=== PATIENT | female | born 1980 | race Caucasian/White ===

== ENCOUNTER 2019-12-15 11:45 | Outpatient (CLI) | payer OTHER, SELFPAY ==
--- NOTE | ~2019-12-15 | US_ITS ---
EXAMINATION: US pelvic complete w TV DATE: 12/15/2019 12:25 INDICATION: Pelvic pain. TECHNIQUE: Multiple transabdominal and transvaginal sonographic images of the pelvis were obtained. COMPARISON: None. FINDINGS: TRANSABDOMINAL ULTRASOUND: The uterus measures 8.1 x 5.0 x 4.2 cm. There is no free fluid in the pelvis. TRANSVAGINAL ULTRASOUND: The endometrial complex measures 9 mm in thickness. There is an intrauterine device in expected posit ion. There is a 1.5 cm intramural fibroid. The right ovary measures 2.3 x 3.1 x 2.7 cm. The left ovar y is not visualized. IMPRESSION: 1. Intrauterine device in expected position. 2. Intramural fibroid. Reviewed, dictated and finalized at location A.
== END 2019-12-15 11:46 | disposition home or self-care (01) ==
PROVIDERS: PCP Internal Medicine Geriatric Medicine; Visit Provider Obstetrics & Gynecology
DX: R10.10 Upper abdominal pain, unspecified (principal); D25.9 Leiomyoma of uterus, unspecified; Z30.431 Encounter for routine checking of intrauterine contraceptive device
CPT/HCPCS: 76830; 76856

== ENCOUNTER 2020-02-13 15:46 | Emergency (ER) | payer OTHER, SELFPAY ==
--- NOTE | ~2020-02-13 | XR_ITS ---
XR shoulder RT min 2V 02/13/2020 16:17 INDICATION: Right shoulder pain PROCEDURE: 4 views right shoulder COMPARISON: No prior studies for comparison. FINDINGS: Fracture, dislocation or subluxation is not identified. The soft tissues appear within norm al limits. No foreign bodies are identified. IMPRESSION: 1: NO ACUTE BONE OR JOINT ABNORMALITY IDENTIFIED. Reviewed, dictated and finalized at location A.
[2020-02-13 15:55] VITALS: BP 128/73; PULSE 90; RESP 20; TEMP 37.4; O2SAT 99
[2020-02-13 16:19] VITALS: BP 128/73; PULSE 90; RESP 20; TEMP 37.4; O2SAT 99
--- NOTE | 2020-02-13 16:20 | ED.UPPEXIN ---
HPI - Extremity Injury (Upper) General Chief Complaint: Extremity Injury, Upper Stated Complaint: right shoulder pain Time Seen by Provider: 02/13/20 16:00 Source: patient and RN notes reviewed Mode of arrival: ambulatory Limitations: no limitations History of Present Illness HPI narrative: 39-year-old female who presents to [facility] with complaints of right shoulder pain related to injury today around 1100. Patient states that she was at [employer] and she bent down to check modem of computer and tripped and fell onto right shoulder on garage floor and also hit her left knee but states minimal discomfort to medial aspect of left knee with small bruise noted. Patient states that her right shoulder pain is severe, that she can't move it with pain radiating down into deltoid region. Patient denies any tingling or numbness to her right hand or fingers, strong right brachial and radial pulses. Patient states that she has taken Tylenol an also has applied ice to her right shoulder with no improvement in her pain. MD complaint: injury to: right and shoulder Onset (ago): hour(s) (11:00 today) Other Extremity Injury: Right: shoulder Other injuries: LLE (medial knee) Handedness: right Place: other (friend's motorcycle shop) Severity: severe Severity scale (1-10): 10 Relieving factors: cold therapy and rest Exacerbating factors: movement of extremity Context: fall and direct blow Associated symptoms: other (left medial knee discomfort also) Treatments prior to arrival: cold therapy and other (tylenol) Related Data Home Medications Medication Instructions Recorded Confirmed sertraline [Zoloft] 200 mg PO DAILY 02/13/20 02/13/20 Allergies Allergy/AdvReac Type Severity Reaction Status Date / Time Sulfa (Sulfonamide Allergy Severe HIVES, Verified 12/22/13 15:00 Antibiotics) SWELLING Review of Systems Review of Systems: Narrative: CONSTITUTIONAL: Denies fever, chills, or sweats. EYES: Denies visual changes, redness, or discharge. ENT: Denies rhinorrhea, congestion, sore throat, or otalgia. CARDIOVASCULAR: Denies chest pain, palpitations, or edema. RESPIRATORY: Denies cough or dyspnea. GASTROINTESTINAL: Denies abdominal pain, nausea, vomiting, or diarrhea. GENITOURINARY: Denies dysuria or hematuria. SKIN: Denies rash or itching. MUSCULOSKELETAL: Denies back pain,positive for right shoulder joint pain, mild discomfort to left knee or myalgia. NEUROLOGIC: Denies headache, numbness, or weakness. PSYCHIATRIC:Positive history of anxiety or depression. 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 Osteoarthritis of knees, bilateral Surgical History Surgical History (Updated 02/15/20 @ 09:44 by Feli Gonzalez NP) H/O abdominoplasty Family History Family History (Updated 02/15/20 @ 09:46 by Feli Gonzalez NP) Father Hypertension Grandparent Heart disease Diabetes mellitus Social History Social History (Updated 02/15/20 @ 09:48 by Feli Gonzalez NP) Smoking status: Never smoker Alcohol intake: unknown Substance use: unknown Living arrangements: with family Gender identity (if verbalized by the patient): Female Comments At time of signature, agree with nursing past medical, surgical, social and family history. There is no relevant family history pertinent to the presenting complaint Exam Narrative: Exam Narrative: GENERAL: Well-appearing, well-nourished, and in no acute distress. HEAD: Normocephalic, atraumatic. EYES: PERRLA and EOMI. ENT: Nares clear, no rhinorrhea or epistaxis. Mucous membranes moist. NECK: Supple.no lymphadenopathy CHEST: Clear to auscultation. No respiratory distress.SAO2 99% on room air. HEART: Regular rate and rhythm. No murmur heard. Normal peripheral pulses. ABDO
== END 2020-02-13 17:05 | disposition home or self-care (01) ==
PROVIDERS: Emergency Provider Registered Nurse; PCP Internal Medicine Geriatric Medicine
DX: S40.011A Contusion of right shoulder, initial encounter (principal); W01.0XXA Fall on same level from slipping, tripping and stumbling without subsequent striking against object, initial encounter; S83.92XA Sprain of unspecified site of left knee, initial encounter; M17.0 Bilateral primary osteoarthritis of knee; F41.9 Anxiety disorder, unspecified
CPT/HCPCS: 73030; 99213; G0463

== ENCOUNTER 2020-07-21 19:02 | Emergency (ER) | payer OTHER, SELFPAY ==
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
[2020-07-21 19:18] VITALS: BP 158/84; PULSE 88; RESP 18; TEMP 37.1; O2SAT 98
--- NOTE | 2020-07-21 19:25 | ECG_ITS ---
Measurements Intervals [place] Rate: 82 P: 38 [place]: 135 QRS: 42 QRSD: 94 T: 37 QT: 343 QTc: 402 Interpretive Statements SINUS RHYTHM BASELINE ARTIFACT- II, III, AVF NORMAL ECG Electronically Signed On 07-22-2020 7:11:17 CDT by Ravi Muir D.O.
[2020-07-21 19:30] VITALS: BP 158/84; PULSE 88; RESP 18; TEMP 37.1; O2SAT 98
== END 2020-07-21 19:35 | disposition home or self-care (01) ==
PROVIDERS: Emergency Provider Nurse Practitioner; PCP Internal Medicine Geriatric Medicine
DX: M25.512 Pain in left shoulder (principal); M17.0 Bilateral primary osteoarthritis of knee
CPT/HCPCS: 93005; 99213; G0463

== ENCOUNTER 2020-09-13 09:25 | Emergency (ER) | payer SELFPAY ==
--- NOTE | ~2020-09-13 | XR_ITS ---
EXAMINATION: XR finger 2nd LT min 2V EXAM DATE: 09/13/2020 10:00 INDICATION: Smashed in car door 09/11/20. Pain distal tuft. TECHNIQUE: Left 2nd finger frontal, lateral and oblique projections obtained and reviewed. There i s no prior study for comparison. FINDINGS: There are no acute left 2nd finger fractures or dislocations identified. There is no subcu taneous gas. The soft tissue is unremarkable. IMPRESSION: 1. Left 2nd finger exam without acute osseous findings. Reviewed, dictated and finalized at location B.
--- NOTE | 2020-09-13 09:29 | ED.UPPEXIN ---
HPI - Extremity Injury (Upper) General Chief Complaint: Extremity Injury, Upper Stated Complaint: left pointer finger injury Time Seen by Provider: 09/13/20 09:30 Source: patient and RN notes reviewed History of Present Illness HPI narrative: Patient is a 40-year-old female who presents to the urgent care with complaints of left pointer finger injury. Patient states on the she smashed in a car door and the nail immediately fell off at that time. Patient states that she has been putting Neosporin and using Tylenol and ice for pain and comfort. Patient has been covering the nail with gauze. Patient denies of any fevers or increased redness or swelling to the area. No other acute complaints or injuries. No acute distress noted. Patient aware of the plan of care. Some parts of this dictation were generated by voice recognition software and may contain typographical and/or grammatical inaccuracies. Related Data Allergies Allergy/AdvReac Type Severity Reaction Status Date / Time Sulfa (Sulfonamide Allergy Severe HIVES, Verified 09/13/20 09:59 Antibiotics) SWELLING Review of Systems Review of Systems: Narrative: CONSTITUTIONAL: Denies fever, chills, or sweats. EYES: Denies visual changes, redness, or discharge. ENT: Denies rhinorrhea, congestion, sore throat, or otalgia. CARDIOVASCULAR: Denies chest pain, palpitations, or edema. RESPIRATORY: Denies cough or dyspnea. GASTROINTESTINAL: Denies abdominal pain, nausea, vomiting, or diarrhea. GENITOURINARY: Denies dysuria or hematuria. SKIN: Reports of losing the nail to the left index finger. MUSCULOSKELETAL: Reports of pain to the left index finger NEUROLOGIC: Denies headache, numbness, or weakness. All other systems reviewed are negative, except as documented in HPI. 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 Osteoarthritis of knees, bilateral Surgical History Surgical History (Updated 02/15/20 @ 09:44 by Feli Gonzalez NP) H/O abdominoplasty Family History Family History (Updated 02/15/20 @ 09:46 by Feli Gonzalez NP) Father Hypertension Grandparent Heart disease Diabetes mellitus Social History Social History (Updated 02/15/20 @ 09:48 by Feli Gonzalez NP) Smoking status: Never smoker Alcohol intake: unknown Substance use: unknown Gender identity (if verbalized by the patient): Female Comments At the time of my signature, I reviewed and agree with the nursing past medical, surgical, social, and family history. There is no relevant family history pertinent to the patient complaint. Exam Narrative: Exam Narrative: GENERAL: This is a well-nourished, well-developed patient, in no apparent distress. HEAD: normocephalic, atraumatic. EYES: PERRL. Sclera clear/white. Vision is grossly intact. EARS: External ears normal NOSE: External nose normal with no obvious nasal discharge, nares without redness, no rhinorrhea. THROAT: Mucous membranes moist NECK: Neck supple CARDIOVASCULAR: Regular rate and rhythm without murmurs, gallops, or rubs. RESPIRATORY: Clear to auscultation. Breath sounds equal bilaterally. No wheezes, rales, or rhonchi. SKIN: Partial nail near the cuticle of the left index finger otherwise absent. Warm, intact with no suspicious lesions or rash, good texture and turgor. NEURO: awake, alert, and oriented to person, place and time. There were no obvious focal neurologic abnormalities. EXTREMITIES: Mild ecchymosis and erythema to the tuft/nailbed of the left index finger. Unable to tolerate test of capillary refill to the affected digit. Range of motion to the affected digit within normal limits. Positive strong left radial pulse. Course Vital Signs Vital signs: Vital Signs Temperature 98.5 F 09/13/20 09:32 Pulse Rate 78 09/13/20 09:32 Respiratory Rate 18 09/13/20 09:32 Blood Pressur
[2020-09-13 09:32] VITALS: BP 133/75; PULSE 78; RESP 18; TEMP 36.9; O2SAT 100
== END 2020-09-13 10:20 | disposition home or self-care (01) ==
PROVIDERS: Emergency Provider Nurse Practitioner Family; PCP Internal Medicine Geriatric Medicine
DX: S69.92XA Unspecified injury of left wrist, hand and finger(s), initial encounter (principal); W23.0XXA Caught, crushed, jammed, or pinched between moving objects, initial encounter; M17.0 Bilateral primary osteoarthritis of knee
CPT/HCPCS: 29130; 73140; 99213; G0463

== ENCOUNTER 2021-07-05 11:51 | Outpatient (CLI) | payer OTHER, SELFPAY ==
--- NOTE | ~2021-07-05 | XR_ITS ---
EXAMINATION: XR abdomen/kub 1V EXAM DATE: 07/05/2021 12:18 INDICATION: Misplaced IUD. TECHNIQUE: Frontal projection(s) of the abdomen for interpretation. There is no prior study for [place]. FINDINGS: No radiopaque foreign bodies identified. Nonobstructive bowel gas pattern. Several pelvic calcifications probably phleboliths. The spinal cord signal intensity and intrinsic morphology is nor mal. No organomegaly. There are no osseous abnormalities identified. IMPRESSION: No radiopaque foreign bodies within abdomen or pelvis. Reviewed, dictated and finalized at location G.
== END 2021-07-05 11:52 | disposition home or self-care (01) ==
LOC: ANHOBOP 11:53 → ANHIMG 11:57
PROVIDERS: PCP Internal Medicine Geriatric Medicine; Visit Provider Obstetrics & Gynecology
DX: T83.32XA Displacement of intrauterine contraceptive device, initial encounter (principal)
CPT/HCPCS: 74018

== ENCOUNTER 2021-08-11 08:53 | Outpatient (CLI) | payer OTHER, SELFPAY ==
[2021-08-11 09:27] LABS: Basophils Absolute Auto 0.1 K/mm3 (0.0-0.1); Basophils Percent Auto 0.6 % (0.2-1.2); Eosinophils Absolute Auto 0.4 K/mm3 (0-0.3); Eosinophils Percent Auto 4.2 % (0-4.4); Hematocrit 40.1 % (37.0-47.0); Hemoglobin 13.3 g/dL (12.0-15.0); Immature Granulocyte Absolute 0.03 K/mm3 (0.00-0.031); Immature Granulocyte Percent A 0.3 % (0-0.5); Lymphocytes Absolute Auto 2.24 K/mm3 (0.9-3.2); Lymphocytes Percent Auto 23.6 % (18.3-44.2); Mean Corpuscular HGB Conc 33.2 g/dl (32-36); Mean Corpuscular Hemoglobin 29.8 pg (26-34); Mean Corpuscular Volume 89.9 fl (80-100); Mean Platelet Volume 11.1 fl (7.4-10.4); Monocytes Absolute Auto 0.4 K/mm3 (0.1-0.6); Neutrophils Absolute Auto 6.4 K/mm3 (1.3-6.7); Neutrophils Percent Auto 67.3 % (45.5-73.1); Platelet Count Result 274 k/mm3 (150-375); Red Blood Count 4.46 M/mm3 (4.2-5.4); White Blood Count 9.5 K/mm3 (4.5-10.0)
== END 2021-08-11 08:54 | disposition home or self-care (01) ==
LOC: ANHSURGERY 09:04
PROVIDERS: PCP Internal Medicine Geriatric Medicine; Visit Provider Obstetrics & Gynecology
DX: D21.9 Benign neoplasm of connective and other soft tissue, unspecified (principal); Z01.818 Encounter for other preprocedural examination
CPT/HCPCS: 36415; 85025; 86850; 86900; 86901

== ENCOUNTER 2021-08-16 00:47 | Day surgery (SDC) | payer OTHER, SELFPAY ==
[2021-08-10 14:12] VITALS: BMI 31.9
--- NOTE | 2021-08-10 14:15 | SUR.PREOP ---
Report to the Outpatient Waiting Room, entrance under the green pavilion located off [facility], at time _1000 on date _08/16/21 . OR Time: _1200 . - You and your visitor will be asked a series of questions to screen for COVID 19 for your protection. - Only one visitor is allowed at this time. - The patient visitor is requested to leave or wait in car when not with patient. - A mask is required within the hospital. Patients may have clear liquids (water, carbonated beverages, clear teas, apple juice) until 3 hours prior to surgery with a maximum of 20 ounces. - No food from midnight until time of surgery - Infants may have breast milk until 4 hours before surgery, infant formula 6 hours prior to surgery. - Children will be allowed to drink immediately following surgery. If applicable, please bring a bottle or sippy cup to assist with drinking. Juice, water, soda, and popsicles are readily available. For infants on formula, please bring formula the day of surgery. Pacifiers are allowed. Take the following medications with a SIP of water the morning of surgery: ___n/a Medications to discontinue per physician ___multivitamin Date to take last dose__08/13/21 Please no make-up, nail upper sorbian, hairspray, perfume, deodorant, or body powder the day of surgery. No jewelry (including any body piercings) or valuables the day of surgery, leave them at home. Please take a shower or bath the night before, or the morning of, surgery with an antibacterial soap. Wear comfortable, loose fitting clothing. Children are encouraged to wear pajamas. - Jewelry must be removed prior to entering the operating room. Rings and piercings that are not removed may be cut off. - The hospital will not accept responsibility for valuables. remove contacts day of surgery - Please leave all valuables, including medications, at home the day of surgery. If you are going home after surgery, a licensed straight truck driver must drive you home. - NO public transportation without another adult. - We recommend that an adult stay with you for 24 hours following discharge. - We also recommend that you do not drive, make important decision, drink alcoholic beverages, or take any drugs that were not prescribed by your health care provider for at least 24 hours after your discharge time. For Pediatric surgeries, we recommend two adults accompany the child home (only one inside the building at this time). Follow any additional instructions given to you from your surgeon. If you or anyone in your household have experienced Covid symptoms in the past week, please notify your surgeon or the nurse liaison at the phone number below for possible testing. Telephone instructions given to _brynn francois and asked if any additional questions and then verbalized understanding. Patient advised to call surgeon office or pre surgery nurse liaison [phone] if any additional questions.
--- NOTE | 2021-08-15 10:38 | PM.IMHP ---
H&P: HPI History of Present Illness Date/Time: 08/15/21 10:38 41-year-old female with symptomatic uterine fibroids with heavy bleeding enlarged uterus pelvic pain admitted for robotic hysterectomy and bilateral salpingectomy. Risks and benefits reviewed degree detail. She understands this will make her permanently infertile. 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 Osteoarthritis of knees, bilateral Surgical History Surgical History H/O abdominoplasty Family History Family History Father Hypertension Grandparent Heart disease Diabetes mellitus Social History Social History Smoking status: Never smoker Alcohol intake: unknown Substance use: unknown Gender identity (if verbalized by the patient): Female Spiritual care concerns: No Meds Home Medications and Allergies Home Medications Medication Instructions Recorded Confirmed Type albuterol 90 mcg INHALATION PRN 08/10/21 08/10/21 History multivitamin 1 cap PO DAILY 08/10/21 08/10/21 History Allergies Allergy/AdvReac Type Severity Reaction Status Date / Time Sulfa (Sulfonamide Allergy Severe HIVES, Verified 08/10/21 13:58 Antibiotics) SWELLING Exam Const: General: no acute distress Eyes: General: appearance normal, both eyes and all related structures Neck: Neck: supple and no JVD Thyroid: thyroid normal Resp: Effort & Inspection: normal respiratory effort Auscultation: clear to auscultation bilaterally Cardio: Rate: regular rate Rhythm: regular rhythm GI: Inspection: non-distended GI Palp: Yes Soft to palpation, No Tenderness to palpation present (GI) and No Guarding due to palpation present (GI) Auscultation: normal bowel sounds : External Female Exam: normal external appearance Speculum Exam - Vagina: normal appearance of the vagina Speculum Exam - Cervix: Cervical os closed Bimanual exam- vagina & uterus: enlarged and nodular Skin: General skin exam: no rashes or lesions noted Extrem: General: normal to inspection and no edema Psych: Mental Status: mental status grossly normal Affect: normal affect Assessment and Plan Additional Plan impression the heavy bleeding enlarged uterus and uterine fibroids with pain Plan: Robotic total vaginal hysterectomy and bilateral salpingectomy
[2021-08-16] VITALS (9 sets, daily range): BP systolic 122–158; BP diastolic 68–96; PULSE 56–84; RESP 12–16; TEMP 36.2–36.9; O2SAT 93–100
--- NOTE | 2021-08-16 06:39 | WPDHPUPDATE1 ---
History and Physical Update Update Date/Time: 08/16/21 06:39 History and Physical has been reviewed, including an updated exam of the patient. There are NO changes in the patient's condition. Risks, benefits, and alternatives have been discussed and questions answered. Patient agrees to proceed with procedure.
[2021-08-16] MEDS: LACTATED RINGERS 1,000 ML 30 ML IV CONT (10:24)
[2021-08-16] MEDS: ACETAMINOPHEN 500 MG TABLET 1000 MG PO (10:24)
[2021-08-16] MEDS: KETOROLAC 15 MG/ML VIAL (*BKC) IV PUSH (10:24)
--- NOTE | 2021-08-16 11:40 | P.PNAN_ITS ---
Anes - Initial Pre Proc Eval Procedure: Operation Date: 08/16/21 12:00 Proposed Procedures p Robotic Assisted Total Vaginal Hysterectomy with Bilateral Salpingectomy - Carlos Beard MD Date/Time: 08/16/21 11:40 Surgeon: Carlos Beard MD Pre Op Diagnosis: Heavy Bleed, Enlarg Uterus, Fibroids, Pain Patient Data Age: 41 Gender: F Height: 1.6 m Weight: 86.8 kg Last Vital Signs Temp 36.9 C 08/16/21 10:00 Pulse 81 08/16/21 10:00 Resp 16 08/16/21 10:00 BP 123/68 08/16/21 10:00 Pulse Ox 98 08/16/21 10:00 Allergies Allergy/AdvReac Type Severity Reaction Status Date / Time Sulfa (Sulfonamide Allergy Severe HIVES, Verified 08/16/21 10:31 Antibiotics) SWELLING Home Medications Medication Instructions Recorded Confirmed Type albuterol 90 mcg INHALATION PRN 08/10/21 08/16/21 History multivitamin 1 cap PO DAILY 08/10/21 08/16/21 History hydrocodone-acetaminophen 1 tablet PO Q4H PRN #30 tablet 08/16/21 Rx Patient hx anesthesia problems: none Family hx anesthesia problems: none Results Review: All pre-operative results and documents have been reviewed as part of the pre-operative evaluation. 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 Osteoarthritis of knees, bilateral Surgical History Surgical History H/O abdominoplasty Family History Family History Father Hypertension Grandparent Heart disease Diabetes mellitus Social History Social History Smoking status: Never smoker Alcohol intake: unknown Substance use: unknown Living arrangements: with family Gender identity (if verbalized by the patient): Female Spiritual care concerns: No Anes - Eval Final PreProcedure Day of Procedure 08/16/21 11:40 Patient weight: obese Heart: regular rate and rhythm Airway: Mallampati scale class II Neurological: alert and oriented Last oral intake: >/= 8 hours ASA classification: III Emergent: no Anesthetic plan: proceed Anesthesia type and monitoring: general ETT and standard monitoring Results Review: All pre-operative results and documents have been reviewed as part of the pre-operative evaluation. Informed Consent: The patient's anesthetic plan and its attendant risks and benefits were discussed with the patient/family/POA. Questions were solicited and answers provided to the satisfaction of the patient/family/POA.
--- NOTE | 2021-08-16 13:05 | P.OP_ITS ---
Procedure Note - Detailed Date of Procedure 08/16/21 Pre-op Diagnosis Heavy Bleed, Enlarg Uterus, Fibroids, Pain Post-op Diagnosis Same Procedure Performed Robotic total vaginal hysterectomy and bilateral salpingectomy Surgeon Carlos Beard MD Anesthesia General Indications say 41-year-old female with enlarged uterus and bleeding refractory to medical therapy Findings enlarged uterus. Normal-appearing fallopian tubes bilaterally. Normal- appearing ovaries bilaterally Description of Procedure the the patient was prepped draped in normal sterile fashion placed in dorsal lithotomy position. Under excellent general trach anesthesia weighted speculum placed in posterior fornix vagina. Anterior lip of cervix grasped with single- tooth tenaculum the uterus sounded to 9cm. Serial dilatation with fragmented dilators performed followed passes the 8. MOY and the 3. Cold cup. Next the 16 [place] catheter was placed in the weighted speculum was removed and gloves were changed. A supraumbilical incision made the Veress needle passed in the abdomen. Abdomen filled with CO2 gas 15mmmmmercury. The 8mm trocar advanced in the abdomen downside visualized no injury seen. Gas reattached patient placed in Trendelenburg and right left lateral quadrant incisions made. 8Mm trocars advanced under direct visualization assuring no injury. Right upper quadrant incision made the 8mm trocar advanced under direct visualization assuring no injury. The robot was docked. Attention was turned to the procedure. The left round ligament was grasped, burned, cut. Anterior bladder flap was formed by sharply dissecting the peritoneum and reflecting the bladder caudally away from the cervix and uterus to the opposite round ligament which was clamped, burned, cut. Next the fallopian tube was sharply dissected away from the ovarian complex using monopolar cautery and left attached to the uterine origin. This was repeated on the contralateral side to remove the right fallopian tube. Next the utero-o varian ligament on the left was clamped, burned, cut and brought to level of previously cut round ligament thus conserving the left ovary. Conserving the right ovary the right utero-ovarian ligament was clamped, burned, cut and brought to the level of previously cut round ligament. Next the cardinal broad ligaments on the left were serially skeletonized hugging the cervix and uterus clamping burning cutting and bringing them down lateral edge until the uterine vessels could be seen on the left. These were large and tortuous they were individually clamped, burned, cut. In like fashion the cardinal broad ligaments on the right were serially skeletonized. They were clamped, burned, cut and brought to the level of previously incised area. the vessels were clamped, burned, cut and excellent blanching of the uterus seen. A colpotomy incision made and the cervix uterus and tubes removed through the vagina. Blood loss estimated 25cc. The vagina was closed with continuous running 0V lock running from lateral edge to lateral edge back to the midline. Irrigation undertaken until clear and no other abnormalities were seen. The robot was undocked. The gas removed from the abdomen the trocars removed. The incisions closed with 4-0 Monocryl and glue. All sponge, needle, instrument counts were correct. There were no immediate complications noted Estimated Blood Loss 25 Drains No Packing No Pathology Yes Complications No immediate complications Condition Stable Disposition PACU
[2021-08-16] MEDS: SCOPOLAMINE 1.5 MG PATCH TRANSDERM (13:34)
[2021-08-16] MEDS: fentaNYL CITRATE INJ (*CRX) 100 MCG/2 ML VIAL 25 MCG IV PUSH ×3 (13:37→14:10)
--- NOTE | 2021-08-16 14:46 | OBPPTRN ---
Patient transferred to room #289 via bed. Oriented to unit & room. Patient verbalizes understanding.
[2021-08-16] MEDS: KETOROLAC 30 MG/ML VIAL (*BKC) IV PUSH (14:59)
[2021-08-16] MEDS: DEXTROSE 5%/LACTATED RINGERS 1,000 ML 125 ML IV CONT (15:01)
[2021-08-16] MEDS: HYDROcodone/acetaminophen (*CRX) 5-325 MG TABLET 1 TAB PO ×3 (15:34→23:45)
[2021-08-16] MEDS: ONDANSETRON INJ 4 MG/2 ML VIAL IV PUSH (15:37)
[2021-08-16] MEDS: IBUPROFEN 600 MG TABLET PO (19:10)
[2021-08-17 04:00] VITALS: BP 120/79; PULSE 81; RESP 16; TEMP 36.5
[2021-08-17] MEDS: IBUPROFEN 600 MG TABLET PO (04:04)
[2021-08-17] MEDS: HYDROcodone/acetaminophen (*CRX) 5-325 MG TABLET 1 TAB PO ×2 (04:05→09:15)
[2021-08-17 05:20] LABS: Basophils Percent Auto 0.2 % (0.2-1.2); Eosinophils Absolute Auto 0.1 K/mm3 (0-0.3); Eosinophils Percent Auto 0.5 % (0-4.4); Hematocrit 35.8 % (37.0-47.0); Hemoglobin 12.1 g/dL (12.0-15.0); Immature Granulocyte Absolute 0.04 K/mm3 (0.00-0.031); Immature Granulocyte Percent A 0.3 % (0-0.5); Lymphocytes Absolute Auto 2.26 K/mm3 (0.9-3.2); Lymphocytes Percent Auto 17.7 % (18.3-44.2); Mean Corpuscular HGB Conc 33.8 g/dl (32-36); Mean Corpuscular Hemoglobin 29.8 pg (26-34); Mean Corpuscular Volume 88.2 fl (80-100); Mean Platelet Volume 11.6 fl (7.4-10.4); Monocytes Absolute Auto 0.7 K/mm3 (0.1-0.6); Monocytes Percent Auto 5.2 % (2.6-8.5); Neutrophils Absolute Auto 9.7 K/mm3 (1.3-6.7); Neutrophils Percent Auto 76.1 % (45.5-73.1); Platelet Count Result 265 k/mm3 (150-375); Red Blood Count 4.06 M/mm3 (4.2-5.4); Red Cell Distribution Width 12.2 % (11.5-14.5); White Blood Count 12.8 K/mm3 (4.5-10.0)
--- NOTE | 2021-08-17 07:12 | P.DS_ITS ---
DS: Admitting Diagnosis Discharge Date 08/17/2021 Admitting Diagnosis bleeding refractory to medical therapy DS: Summary Hospital Course Hospital Course: this 41-year-old female is admitted for robotic Hyst and bilateral salpingectomy secondary to bleeding refractory to medical therapy. The procedure was unremarkable and performed on 08/16/2021. Please see the operative report for full details. Her hospital course was unremarkable. She remained afebrile. She was up, ambulating, voiding without difficulty, and generally without complaints. Time Spent with Patient Time attestation: Total time spent providing and/or coordinating discharge services: Exam Const: General: no acute distress Eyes: General: appearance normal, both eyes and all related structures Neck: Neck: supple and no JVD Thyroid: thyroid normal Resp: Effort & Inspection: normal respiratory effort Auscultation: clear to auscultation bilaterally Cardio: Rate: regular rate Rhythm: regular rhythm GI: Inspection: non-distended GI Palp: Yes Soft to palpation, No Tenderness to palpation present (GI) and No Guarding due to palpation present (GI) Auscultation: normal bowel sounds : General: Yes bladder normal to palpation External Female Exam: normal external appearance Speculum Exam - Vagina: normal vaginal discharge and No vaginal bleeding Speculum Exam - Cervix: nontender Bimanual exam- vagina & uterus: bladder normal to palpation and No Cervical tenderness present OB/external & speculum: No vaginal bleeding Skin: General skin exam: no rashes or lesions noted Extrem: General: normal to inspection and no edema Psych: Mental Status: mental status grossly normal Affect: normal affect DS: Data Data Completed and Pending Pending studies at discharge: Pending at discharge 08/16/21 12:46 Surgical [PTH] Routine Labs on day of discharge: Labs from last 24 hours 08/17/21 03:59 WBC 12.8 H RBC 4.06 L Hgb 12.1 Hct 35.8 L MCV 88.2 MCH 29.8 MCHC 33.8 RDW 12.2 Plt Count 265 MPV 11.6 H Immature Gran % (Auto) 0.3 Neut % (Auto) 76.1 H Lymph % (Auto) 17.7 L [place] % (Auto) 5.2 Eos % (Auto) 0.5 Baso % (Auto) 0.2 Lymph # (Auto) 2.26 [place] # (Auto) 0.7 H Eos # (Auto) 0.1 Baso # (Auto) 0.0 Abs Immat Gran (auto) 0.04 H Absolute Neuts (auto) 9.7 H Absolute Nucleated RBC 0.0 Nucleated RBC % 0.0 Discharge Plan Discharge Patient Disposition: Home, Self-Care Stand Alone Forms: General Discharge Instructions Follow-up/Referrals: Carlos Leyva MD [Physician] - Discharge Medications: New hydrocodone-acetaminophen 5-325 mg tablet 1 tablet PO Q4H PRN (Reason: pain) Qty: 30 RF: 0 No Action albuterol 90 mcg/actuation Aerosol 90 mcg INHALATION PRN RF: 0 multivitamin Capsule 1 cap PO DAILY RF: 0
--- NOTE | 2021-08-17 07:14 | P.PNOB_ITS ---
OB - PN: Subj Subjective Date/time seen: 08/17/21 07:14 Patient comments: no complaints and pain well controlled baby status: doing well OB - PN: Obj Data Labs CBC & Chem 7: 08/17/21 03:59 Labs: Laboratory Results - last 24 hr 08/17/21 03:59 WBC 12.8 H RBC 4.06 L Hgb 12.1 Hct 35.8 L MCV 88.2 MCH 29.8 MCHC 33.8 RDW 12.2 Plt Count 265 MPV 11.6 H Immature Gran % (Auto) 0.3 Neut % (Auto) 76.1 H Lymph % (Auto) 17.7 L [place] % (Auto) 5.2 Eos % (Auto) 0.5 Baso % (Auto) 0.2 Lymph # (Auto) 2.26 [place] # (Auto) 0.7 H Eos # (Auto) 0.1 Baso # (Auto) 0.0 Abs Immat Gran (auto) 0.04 H Absolute Neuts (auto) 9.7 H Absolute Nucleated RBC 0.0 Nucleated RBC % 0.0 OB - PN A/P Plan day: 1 Plan: routine care, discharge home and follow up 6 weeks (2) Time Spent With Patient Time: Total time spent is greater than 50% in coordination of care (as documented) at patient's floor/unit and/or counseling patient: Time with patient: less than 15 minutes Review of Systems Review of Systems: All systems reviewed & are unremarkable except as noted in HPI and below Exam Const: General: no acute distress Eyes: General: appearance normal, both eyes and all related structures Neck: Neck: supple and no JVD Thyroid: thyroid normal Resp: Effort & Inspection: normal respiratory effort Auscultation: clear to auscultation bilaterally Cardio: Rate: regular rate Rhythm: regular rhythm GI: Inspection: non-distended GI Palp: Yes Soft to palpation, No Tenderness to palpation present (GI) and No Guarding due to palpation present (GI) Auscultation: normal bowel sounds : General: Yes bladder normal to palpation External Female Exam: normal external appearance Speculum Exam - Vagina: normal vaginal discharge and No vaginal bleeding Speculum Exam - Cervix: nontender Bimanual exam- vagina & uterus: bladder normal to palpation and No Cervical tenderness present OB/external & speculum: No vaginal bleeding Skin: General skin exam: no rashes or lesions noted Extrem: General: normal to inspection and no edema Psych: Mental Status: mental status grossly normal Affect: normal affect
[2021-08-17 07:30] VITALS: BP 120/70; PULSE 83; RESP 20; TEMP 37; O2SAT 100
[2021-08-17] MEDS: DOCUSATE SODIUM 100 MG CAPSULE PO (09:14)
[2021-08-17] MEDS: ENOXAPARIN 40 MG/0.4 ML SYRINGE SUB-Q (09:15)
== END 2021-08-17 09:30 | disposition home or self-care (01) ==
LOC: ANHSURGERY 09:37 → ANHOB2 14:37
PROVIDERS: PCP Internal Medicine Geriatric Medicine; Visit Provider Obstetrics & Gynecology
PROC: (CPT 58552; principal; 2021-08-16 12:00)
DX: N92.0 Excessive and frequent menstruation with regular cycle (principal); D25.0 Submucous leiomyoma of uterus; N85.8 Other specified noninflammatory disorders of uterus; N73.6 Female pelvic peritoneal adhesions (postinfective); F41.9 Anxiety disorder, unspecified; Z79.51 Long term (current) use of inhaled steroids; R10.2 Pelvic and perineal pain; M19.90 Unspecified osteoarthritis, unspecified site; J45.909 Unspecified asthma, uncomplicated; E66.9 Obesity, unspecified; Z68.33 Body mass index [BMI] 33.0-33.9, adult
CPT/HCPCS: 58552; S2900; 36415; 85025; 86850; 86900; 86901; 88307; 99199; A9270; J1100; J1650; J1885; J2250; J2270; J2405; J2704; J3010; J7120; J7121

== ENCOUNTER 2022-02-11 08:45 | Emergency (ER) | payer OTHER, SELFPAY ==
[2022-02-11 08:52] VITALS: BP 140/94; PULSE 90; RESP 18; TEMP 36.7; O2SAT 96
[2022-02-11] MEDS: ALBUTEROL SULFATE NEB 2.5 MG/3 ML INH INHALATION (09:25)
[2022-02-11] MEDS: IPRATROPIUM BR 0.02% INH SOLN 0.5 MG/2.5 ML VIAL INHALATION (09:26)
--- NOTE | 2022-02-11 09:36 | ED.URI ---
HPI - URI/Sore Throat General Chief Complaint: Upper Respiratory Infection Stated Complaint: Cough/Shortness of Breath Time Seen by Provider: 02/11/22 09:20 Source: patient, RN notes reviewed and old records reviewed Mode of arrival: ambulatory Limitations: no limitations History of Present Illness HPI Narrative: 41-year-old female who [facility] with history of asthma presents to [facility] with complaints of cough, head congestion, headache, diarrhea, and shortness of breath which started around 3 p.m. yesterday. Patient reports she has been using her inhaler but she has not been effective to relieve her wheezing and shortness of breath. Patient has not been COVID vaccinated nor flu vaccinated. Son was treated for strep throat yesterday in this clinic. Patient reports that she aches all over and has headache pain with no fever noted. MD elicited complaint: cough, rhinorrhea, nasal congestion and other (Shortness of breath wheezing, diarrhea, headache) Pertinent past history: asthma and other (exposure to strep) Onset (ago): day(s) (1) Pain scale (0-10): 5 Able to tolerate fluids by mouth: Yes Treatments prior to arrival: other (inhaler) Related Data Home Medications Medication Instructions Recorded Confirmed albuterol sulfate 90 mcg/actuation inhalation 02/11/22 02/11/22 aerosol inhaler Allergies Allergy/AdvReac Type Severity Reaction Status Date / Time Sulfa (Sulfonamide Allergy Severe HIVES, Verified 02/11/22 08:50 Antibiotics) SWELLING Review of Systems Review of Systems: CONSTITUTIONAL: Reports malaise, chills, sweats, no known fever. EYES: Denies visual changes, redness, or discharge. ENT: Reports rhinorrhea, congestion, sinus pain,no otalgia and sore throat. CARDIOVASCULAR: Denies chest pain, palpitations, or edema. RESPIRATORY: Reports cough.Reports dyspnea. GASTROINTESTINAL: Denies abdominal pain, nausea, vomiting,positive for diarrhea SKIN: Denies rash or itching. MUSCULOSKELETAL: Denies myalgia. NEUROLOGIC: Reports headache. 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 There is no relevant family history pertinent to the presenting complaint Exam Narrative: GENERAL: Ill-appearing, well-nourished, and in no acute distress. HEAD: Normocephalic EYES: PERRLA, conjunctivae clear ENT: Nares clear, turbinates edematous and erythematous, clear discharge. Mucous membranes moist. TM pearly singh with dull light reflex bilaterally; no tragal tenderness. Oropharynx erythematous without lesions. Tonsils not enlarged and without exudate, no drooling, no hoarseness, no trismus, uvula midline. NECK: Supple. No lymphadenopathy CHEST:Scattered wheezing with stated shortness of breath, breath sounds equal. positive for wheezing, no rhonchi, rales, or stridor. No respiratory distress, speaks in full sentences.SAO2 96% on room air HEART: Regular rate and rhythm. No murmur heard. SKIN: Warm, dry, no rash. NEURO: Alert and oriented x3. PSYCH: Normal mood and affect Course Course Emergency Course
[2022-02-11 10:00] VITALS: PULSE 98; RESP 20; O2SAT 98
--- NOTE | 2022-02-11 10:45 | ED.URI ---
HPI - URI/Sore Throat General Chief Complaint: Upper Respiratory Infection Stated Complaint: Cough/Shortness of Breath Time Seen by Provider: 02/11/22 09:20 Source: patient, RN notes reviewed and old records reviewed Mode of arrival: ambulatory Limitations: no limitations History of Present Illness Treatments prior to arrival: other (inhaler) Related Data Home Medications Medication Instructions Recorded Confirmed albuterol sulfate 90 mcg/actuation inhalation 02/11/22 02/11/22 aerosol inhaler Allergies Allergy/AdvReac Type Severity Reaction Status Date / Time Sulfa (Sulfonamide Allergy Severe HIVES, Verified 02/11/22 08:50 Antibiotics) SWELLING PMFSH Past Medical History Medical History Anxiety Arthritis Asthma Hx of migraines 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 Osteoarthritis of knees, bilateral Surgical History Surgical History H/O abdominoplasty Family History Family History Father Hypertension Grandparent Heart disease Diabetes mellitus Social History Social History Smoking status: Never smoker Alcohol intake: unknown Substance use: unknown Gender identity (if verbalized by the patient): Female Spiritual care concerns: No Course Vital Signs Vital signs: Vital Signs Temperature 36.7 C 02/11/22 08:52 Pulse Rate 90 02/11/22 08:52 Respiratory Rate 18 02/11/22 08:52 Blood Pressure 140/94 H 02/11/22 08:52 Pulse Oximetry 96 02/11/22 08:52 Oxygen Delivery Room Air 02/11/22 08:52 Temperature 36.7 C 02/11/22 08:52 Pulse Rate 90 02/11/22 08:52 Respiratory Rate 18 02/11/22 08:52 Blood Pressure 140/94 H 02/11/22 08:52 Pulse Oximetry 96 02/11/22 08:52 Oxygen Delivery Room Air 02/11/22 08:52 MDM - URI/Sore Throat Lab Data Labs: Lab Results 02/11/22 Range/Units 10:00 POC SARS CoV-2 Ag Negative (Negative) Influenza A Screen Negative Reference Range: Negative Influenza B Screen Negative Reference Range: Negative Strep Screen Presumptive Negative *(Reference Range: Negative)* Discharge Plan Discharge Clinical Impression: Asthma exacerbation Prescriptions: No Action albuterol sulfate 90 mcg/actuation HFA aerosol inhaler INHALATION Follow-up/Referrals: Renetta,MD Delaney [Primary Care Provider] -
[2022-02-11 18:16] LABS: SARS-CoV-2 RNA PCR Negative
== END 2022-02-11 11:00 | disposition home or self-care (01) ==
PROVIDERS: Emergency Provider Registered Nurse; PCP Internal Medicine Geriatric Medicine
DX: J45.901 Unspecified asthma with (acute) exacerbation (principal); J06.9 Acute upper respiratory infection, unspecified; Z20.822 Contact with and (suspected) exposure to COVID-19; Z28.310 Unvaccinated for COVID-19; M17.0 Bilateral primary osteoarthritis of knee
CPT/HCPCS: 87081; 87426; 87804; 87880; 94640; 99213; C9803; G0463; U0003; U0005